=== PATIENT | female | born 1965 | race Hispanic/Latino ===

== ENCOUNTER 2023-09-08 10:09 | Outpatient (CLI) | payer OTHER ==
[2023-09-08] MEDS ORDERED: Barium Sulfate 96% 176 GM BOT (xray ONLY) ONE (10:30)
[2023-09-08] MEDS ORDERED: E-Z-HD 98% W/W 340GM BOT (x-ray ONLY) ONE (10:30)
== END 2023-09-08 10:10 | disposition home or self-care (01) ==
LOC: RAD 10:09
PROVIDERS: ATTEND Internal Medicine Gastroenterology
DX: K22.5 Diverticulum of esophagus, acquired (principal)
CPT/HCPCS: 74220